=== PATIENT | male | born 1965 | race Hispanic/Latino ===

== ENCOUNTER 2017-05-15 03:09 | Emergency (ER) | payer OTHER ==
[2017-05-15 03:23] VITALS: BP 122/85; RESP 18; TEMP 97.6
[2017-05-15] MEDS ORDERED: Naproxen 500 MG TAB PO STA (03:33)
--- NOTE | 2017-05-15 03:33 | ED PDOC ---
HPI: Back Time Seen by Provider: 05/15/17 03:31 Chief Complaint (Nursing): Back Pain Chief Complaint (Provider): BACK PAIN History Per: Patient (51 Y/O MALE H/O MS HERE WITH LOWER BACK PAIN AFTER FALL ONTO FLOOR. PATIENT STATES HE MISJUDGED DISTANCE IN [place] OUT OF BATHROOM AND LANDED ON FLOOR WHILE TRYING TO SIT IN WHEELCHAIR. NO LOC. NOTES BACK PAIN CURRENTLY.) Past Medical History Reviewed: Historical Data, Nursing Documentation, Vital Signs Vital Signs: Last Vital Signs Temp 97.6 F 05/15/17 03:19 Pulse 120 H 05/15/17 03:19 Resp 18 05/15/17 03:19 BP 122/85 05/15/17 03:19 Pulse Ox 100 05/15/17 03:19 - Medical History PMH: Multiple Sclerosis - Family History Family History: States: Unknown Family Hx - Home Medications Home Medications: Ambulatory Orders Medication Instructions Recorded Aspirin [[place] Aspirin] 81 mg PO DAILY 08/11/15 Tramadol HCl [Ultram] 50 mg PO BID PRN #14 tablet 08/11/15 Tramadol HCl [Ultram] 50 mg PO Q6 #15 tab 09/28/15 Naproxen 375 mg PO Q8 PRN #21 tablet 05/15/17 - Allergies Allergies/Adverse Reactions: Allergies Allergy/AdvReac Type Severity Reaction Status Date / Time divalproex sodium AdvReac coma Verified 09/28/15 20:01 [From Depakote] Review of Systems ROS Statement: Except As Marked, All Systems Reviewed And Found Negative Physical Exam - Reviewed Nursing Documentation Reviewed: Yes Vital Signs Reviewed: Yes - Physical Exam Appears: Positive for: Well, Non-toxic, No Acute Distress Head Exam: Positive for: ATRAUMATIC, NORMAL INSPECTION, NORMOCEPHALIC Skin: Positive for: Normal Color, Warm, DRY Eye Exam: Positive for: EOMI, Normal appearance, PERRL ENT: Positive for: Normal ENT Inspection Neck: Positive for: Normal, Painless ROM Cardiovascular/Chest: Positive for: Regular Rate, Rhythm Respiratory: Positive for: CNT, Normal Breath Sounds Gastrointestinal/Abdominal: Positive for: Normal Exam, Bowel Sounds, Soft Back: Positive for: Normal Inspection Extremity: Positive for: Normal ROM Neurologic/Psych: Positive for: Alert, Oriented - ECG O2 Sat by Pulse Oximetry: 100 - Progress ED Course And Treament: xr L spine: no acute disease Disposition - Clinical Impression Clinical Impression: Back contusion - Patient ED Disposition Is Patient to be Admitted: No - Disposition Referrals: [facility] [Outside] Disposition: Routine/Home Disposition Time: 04:47 Condition: FAIR Prescriptions: Naproxen 375 mg PO Q8 PRN #21 tablet PRN Reason: Pain, Moderate (4-7) Instructions: Contusion (DC), Low Back Pain (DC) Forms: [employer] (Iranian)
[2017-05-15] MEDS ORDERED: Naproxen 500 MG TAB PO ONE (03:35)
[2017-05-15 05:04] VITALS: PULSE 95; O2SAT 97
--- NOTE | 2017-05-15 12:22 | RAD ---
PROCEDURE: Radiographs of the Lumbar Spine. . Note that the examination is somewhat limited due to partial obscuration of fine detail by overlying bowel related artifact. HISTORY: FALL/LOWER BACK PAIN COMPARISON: No prior. FINDINGS: BONES: No evidence of acute displaced or anterior wedge compression fractures nor retropulsed fragments. Vertebral bodies exhibit relatively normal stature. DISC SPACES: Disc space heights relatively maintained. Tiny marginal anterolateral osteophyte formation noted. OTHER FINDINGS: None. IMPRESSION: Limited study as above. No acute fractures.
== END 2017-05-15 05:15 | disposition home or self-care (01) ==
LOC: H.ER 03:09
DX: S30.0XXA Contusion of lower back and pelvis, initial encounter (principal); W19.XXXA Unspecified fall, initial encounter; Y92.89 Other specified places as the place of occurrence of the external cause; G35 Multiple sclerosis; Z79.82 Long term (current) use of aspirin

== ENCOUNTER 2017-09-10 14:44 | Emergency (ER) | payer OTHER ==
[2017-09-10 14:45] VITALS: BMI 27.7
[2017-09-10 14:49] VITALS: BP 120/65; PULSE 126; RESP 16; TEMP 98.9; O2SAT 95
[2017-09-10] MEDS ORDERED: Naproxen 500 MG TAB PO STA (15:33)
[2017-09-10] MEDS ORDERED: Naproxen 500 MG TAB PO ONE (15:36)
--- NOTE | 2017-09-10 15:37 | ED PDOC ---
HPI: Trauma/Fall - HPI Time Seen by Provider: 09/10/17 14:52 Chief Complaint (Nursing): Trauma Chief Complaint (Provider): Fall Additional Complaint(s): Pt BIBA after being found on ground after falling out of wheelchair. Pt refusing to answer questions and physical exam. Against Medical Advice - AMA Patient Left Against Medical Advice: The patient declines admission to the hospital and wishes to leave the Emergency Department. This action is against my medical advice. This decision was made with informed refusal. The patient was told that admission to the hospital is necessary. Explanation of the reasons why were discussed. The risks of leaving were explained to the patient and include, but are not limited to, worsening of known or currently unknown conditions, permanent disability and from undiagnosed or untreated conditions. The patient has the capacity to make this informed decision and understands my explanation of the current medical problem and risks of leaving. The patient voluntarily accepts these risks and signed an AMA form documenting our conversation. The patient was given the opportunity to ask questions and reconsider. The patient was encouraged to return to the Emergency Department at any time for further care. Past Medical History Reviewed: Nursing Documentation, Vital Signs Vital Signs: Last Vital Signs Temp 98.9 F 09/10/17 14:46 Pulse 126 H 09/10/17 14:46 Resp 16 09/10/17 14:46 BP 120/65 09/10/17 14:46 Pulse Ox 95 09/10/17 17:12 - Medical History PMH: Anxiety, Back Problems (slipped discs and 2 injured vertebrae), Depression , Hypercholesterolemia, Multiple Sclerosis, Osteoporosis Denies: Chronic Kidney Disease - Family History Family History: States: Unknown Family Hx - Immunization History Hx Tetanus Toxoid Vaccination: No Hx Influenza Vaccination: Yes - Home Medications Home Medications: Ambulatory Orders Medication Instructions Recorded Aspirin [[place] Aspirin] 81 mg PO DAILY 08/11/15 Amitriptyline [Elavil] 10 mg PO HS PRN 08/03/17 Baclofen [Lioresal] 10 mg PO TID 08/03/17 Gabapentin [Neurontin] 100 mg PO TID 08/03/17 Simvastatin [Zocor] 20 mg PO DAILY 08/03/17 - Allergies Allergies/Adverse Reactions: Allergies Allergy/AdvReac Type Severity Reaction Status Date / Time divalproex sodium AdvReac coma Verified 06/30/18 14:46 [From Depakote] Physical Exam - Reviewed Nursing Documentation Reviewed: Yes Vital Signs Reviewed: Yes - Physical Exam Appears: Positive for: Well, No Acute Distress - ECG O2 Sat by Pulse Oximetry: 95 Medical Decision Making Medical Decision Makin yo male [place] after falling off wheelchair. Pt refusing evaluation and/or treatment. Pt states his will be looking for him and needs to call her. Has appt at [place] today. Disposition - Clinical Impression Clinical Impression: Fall from non-moving wheelchair - Disposition Disposition: Against Medical Advice Disposition Time: 15:30 Condition: UNKNOWN Forms: [employer] (Slovenian)
== END 2017-09-10 19:00 | disposition left against medical advice (07) ==
LOC: H.ER 14:44
DX: Z04.3 Encounter for examination and observation following other accident (principal)